=== PATIENT | female | born 1955 | race Caucasian/White ===

== ENCOUNTER 2018-08-11 05:41 | Day surgery (SDC) | payer MEDICARE, OTHER ==
[2018-08-11] MEDS ORDERED: DEXAMETHASONE 4 MG/ML 1ML VIAL IVP ONE (05:42)
[2018-08-11] MEDS ORDERED: ONDANSETRON HCL IV 4 MG/2 ML VIAL IVP ONE (05:42)
[2018-08-11] MEDS ORDERED: BUPIVACAINE 0.5% W/EPI MPF 30 ML VIAL IVP ONE (05:42)
[2018-08-11] MEDS ORDERED: SEVOFLURANE 250 ML INH ONE (05:42)
[2018-08-11] MEDS ORDERED: MORPHINE SULFATE 4 MG/ML VIAL IVP ONE (05:42)
[2018-08-11] MEDS ORDERED: MIDAZOLAM HCL 2MG/2ML VIAL IV ONE (05:42)
[2018-08-11] MEDS ORDERED: ENOXAPARIN 40 MG/0.4 ML SYR SQ ONE (05:42)
[2018-08-11] MEDS ORDERED: METHYLPREDNISOLONE 40MG/VIAL IM ONE (05:42)
[2018-08-11] MEDS ORDERED: PROPOFOL 10 MG/ML VIAL IV ONE (05:42)
[2018-08-11] MEDS ORDERED: FENTANYL PF 100MCG/2ML VIAL IV ONE (05:42)
[2018-08-11] MEDS ORDERED: LIDOCAINE 2% MDV (20MG/ML) 20ML VIAL IV ONE (05:42)
[2018-08-11] MEDS ORDERED: CEFAZOLIN 2 Gram 2 GM/50 ML BAG IVPB ONE (06:00)
[2018-08-11] MEDS ORDERED: ACETAMINOPHEN 1,000 MG/100 ML BTL IV ONE (06:00)
[2018-08-11 06:30] LABS: BASO % 0.5 % (0-6); EOS % 2.9 % (0-6); GRAN % 49.8 % (47-80); HEMATOCRIT 40.9 % (35.0-47.0); HEMOGLOBIN 13.5 gm/dl (11.6-16.0); LYMPH % 37.5 % (16-45); MEAN CELL VOLUME 88.5 fl (81-97); MEAN CORPUSCULAR HEMOGLOBIN 29.2 pg (27-33); MEAN PLATELET VOLUME 9.4 fl (7.4-10.4); MONO % 9.3 % (0-9); PLATELET COUNT 333 K/uL (130-400); RED BLOOD COUNT 4.62 M/uL (3.80-5.40); RED CELL DISTRIBUTION WIDTH 13.2 % (11.5-14.5)
[2018-08-11 06:31] LABS: BLOOD UREA NITROGEN 14 mg/dL (8-23); CREATININE 0.6 mg/dL (0.5-0.9); EST GLOMERULAR FILTRATION RATE > 60 mL/min; GLUCOSE,RANDOM 108 mg/dL (74-109)
[2018-08-11] MEDS ORDERED: MORPHINE SULFATE 4 MG/ML VIAL ONE (07:52)
--- NOTE | 2018-08-13 11:07 | Operative Note ---
DATE: 08/11/2018. PREOPERATIVE DIAGNOSIS: INTERNAL DERANGEMENT OF THE RIGHT KNEE. POSTOPERATIVE DIAGNOSES: 1. 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 2. GRADE 3 CHONDROMALACIA OF THE MEDIAL FEMORAL CONDYLE. 3. SMALL FLAP TEAR INVOLVING THE POSTERIOR MEDIAL HORN OF THE MEDIAL MENISCUS. 4. DIFFUSE SYNOVITIS. PROCEDURES: 1. Right knee arthroscopy with partial medial meniscectomy. 2. Right knee arthroscopy with complete synovectomy. 3. Right knee arthroscopy with chondroplasty of the medial and patellofemoral compartments. STAFF SURGEON: Stefano Griggs M.D. ANESTHESIA: General. PREPARATION: ChloraPrep. INDIVIDUAL CONSIDERATIONS: None. PROCEDURE: The patient was taken to the operating room and placed supine on the operating table. She had successful induction of a general anesthetic. Her right lower extremity was prepped and draped in the usual fashion. The patient had a superolateral inflow cannula placed. The skin had been infiltrated with 0.5% Marcaine with epinephrine prior. The knee was then inflated with normal saline. An inferomedial and an inferolateral portal were made in a similar fashion. The arthroscope was introduced through the inferolateral portal up into the pouch. The patellofemoral joint showed grade 4 changes throughout with loose marginal cartilage at the periphery. This was smoothed off with a shaver. There was floating debris which was irrigated out. There was a lot of synovitis with bony debris in both gutters. The synovitis was debrided with a shaver. Medially she had a flap tear involving the posterior medial horn. This was debrided back with a shaver to a stable rim. There was grade 3 change with fibrocartilage throughout the medial femoral condyle which was smoothed with a shaver. In the notch the cruciates were normal. The lateral compartment structures were basically normal. The knee was then irrigated out with saline to remove floating debris. The portals were closed with pati, and 20 mL of 0.25% plain Marcaine along with 4.0 mg of morphine and 40 mg of Depo Medrol were injected into the knee. A sterile Bulkee compressive dressing was applied. The patient tolerated the procedure well. Needle and sponge counts were correct. Estimated blood loss was minimal. She was taken back to the Recovery in good condition. There were no complications. Job Number: [id number] [facility]
== END 2018-08-11 10:35 | disposition home or self-care (01) ==
LOC: SUR 05:41
PROVIDERS: ATTEND Orthopaedic Surgery
DX: S83.241A Other tear of medial meniscus, current injury, right knee, initial encounter (principal); M22.41 Chondromalacia patellae, right knee; M94.261 Chondromalacia, right knee; M65.9 Synovitis and tenosynovitis, unspecified; G47.33 Obstructive sleep apnea (adult) (pediatric); E66.9 Obesity, unspecified
CPT/HCPCS: 29881; 29876; 01400; 85025; 80048; J2405; J3010; J0690; J2270; J1030; J1650